=== PATIENT | female | born 1995 | race Caucasian/White ===

== ENCOUNTER → 2016-08-08 | Outpatient (CLI) | payer BC ==
[2016-08-08 20:42] LABS: Basophils % (A) 0 %; CH 22.4; CHCM 30.6; Eosinophils # (A) 0.1 k/uL (0-0.7); Eosinophils % (A) 1 %; HGB 11.9 gm/dL (11.4-16.0); Hypochromasia Marked; Luc # (Auto) 0.14; Luc % (Auto) 2; Lymphocytes # (A) 0.8 k/uL (1.0-4.8); Lymphocytes % (A) 11 %; MCHC 31.3 g/dL (31.0-37.0); MCV 73.3 fL (80.0-100.0); Mean Platelet Volume 6.4; Microcytosis Slight; Monocytes # (A) 0.7 k/uL (0-1.0); Monocytes % (A) 9 %; Neutrophils # (A) 5.7 k/uL (1.3-7.7); Neutrophils % (A) 76 %; RBC 5.18 m/uL (3.80-5.40); RDW 13.9 % (11.5-15.5); WBC 7.5 k/uL (3.8-10.6); WBC (Perox) 7.59
[2016-08-08 20:49] LABS: ALT 31 U/L (9-52); AST 22 U/L (14-36); Alkaline Phosphatase 147 U/L (38-126); Anion Gap 12 mmol/L; Blood Urea Nitrogen 11 mg/dL (7-17); Calcium 9.7 mg/dL (8.4-10.2); Carbon Dioxide 29 mmol/L (22-30); Chloride 100 mmol/L (98-107); Glucose 82 mg/dL (74-99); Non-African American GFR(MDRD) >60 (>60 ml/min/1.73 sqM); Potassium 4.1 mmol/L (3.5-5.1); Sodium 141 mmol/L (137-145); Total Bilirubin 0.7 mg/dL (0.2-1.3)
== END | disposition home or self-care (01) ==
LOC: MMGSC 14:33
PROVIDERS: ATTEND Family Medicine
DX: R59.0 Localized enlarged lymph nodes (principal)
CPT/HCPCS: 36415; 80053; 85025

== ENCOUNTER → 2016-08-25 | Outpatient (CLI) | payer BC ==
--- NOTE | 2016-08-25 16:35 | US ---
EXAMINATION TYPE: US thyroid st tissue head/neck DATE OF EXAM: 08/25/2016 4:22 PM COMPARISON: NONE CLINICAL HISTORY: R59.9 Supraclavicular lymphadenopathy. Palpable area felt for 2 weeks Findings: 2.7cm enlarged lymph node seen supraclavicular at area of palpable At level of palpable abnormality there is 2.7 x 2.2 x 1.3 cm oval well-circumscribed lesion felt to r eflect abnormal lymph node as there is loss of normal central fatty hilum. No worrisome fluid collect ion identified. IMPRESSION: Abnormal adenopathy right supraclavicular level. Differential includes infection versus n eoplasm. If lesion persists further investigation with contrast-enhanced neck CT or MRI would be advi sed.
== END | disposition home or self-care (01) ==
LOC: RADUSWWP 16:13
PROVIDERS: ATTEND Family Medicine
DX: R59.9 Enlarged lymph nodes, unspecified (principal)
CPT/HCPCS: 76536

== ENCOUNTER 2016-11-07 08:55 | Day surgery (SDC) | payer BC ==
[2016-11-07 09:10] VITALS: BP 114/73; PULSE 89; RESP 20; TEMP 97.6
--- NOTE | 2016-11-07 11:24 | US ---
EXAMINATION TYPE: US biopsy lymph node DATE OF EXAM: 11/07/2016 HISTORY: supraclavicular mass. FINDINGS: Maximal barrier technique was utilized. The skin overlying a suitable path to the patient' s mass was localized with ultrasound and the overlying skin prepped and draped. Ultrasound was utili zed with sterile technique. Lidocaine was used for local anesthesia. A skin zane was made with a sc alpel. An 18-gauge needle was advanced under direct ultrasound guidance and core specimen obtained o f the mass. Specimen submitted in formalin to Pathology. Following the procedure, hemostasis achiev ed and the patient is discharged in stable condition without complication. IMPRESSION:STATUS POST ULTRASOUND GUIDED CORE BIOPSY OF right supraclavicular MASS, PATHOLOGY IS PEND ING. THIS PROCEDURE IS PERFORMED BY THE UNDERSIGNED.
== END 2016-11-07 10:30 | disposition home or self-care (01) ==
LOC: RADPROMAIN 08:55
PROVIDERS: ATTEND Otolaryngology Plastic Surgery within the Head & Neck
DX: R59.1 Generalized enlarged lymph nodes (principal)
CPT/HCPCS: 38505; 76942; 88305; 88341; 88342

== ENCOUNTER 2016-12-05 06:36 | Day surgery (SDC) | payer BC ==
[2016-12-04 11:25] VITALS: BMI 19.5
[~2016-12-05 06:36] MED LIST: DEXAMETHASONE SOD PHOSPHATE 10 MG/ML 1 ML VIAL IV ONE; HEPARIN SODIUM,PORCINE 5,000 UNIT/ML 1 ML VIAL SQ ONE; HYDROmorphone 1 MG/ML 1 ML SYRINGE IVP PRN; LACTATED RINGERS 1,000 ML IV SCH; MIDAZOLAM 2 MG/2 ML VIAL IV PRN; ONDANSETRON 4 MG/2 ML VIAL IVP ONE; Pre Op ABX Message 1 EACH MISC MISCELLANE ONE; SCOPOLAMINE 1.5MG/72HR PATCH TRANSDERM ONE
[2016-12-05 06:55] VITALS: RESP 16
[2016-12-05] MEDS ORDERED: LIDOCAINE 1% 20 ML VIAL (10MG/ML) FOR IV START INTRADERMA ONE (07:01)
--- NOTE | 2016-12-05 07:35 | P.GSHP ---
History of Present Illness H&P Date: 12/05/16 Chief Complaint: Lymphoma Patient is a 21-year-old female who was diagnosed recently with lymphoma. She had a open right supraclavicular lymph node biopsy. He is to begin chemotherapy next week. She is having a Port-A-Cath and a bone marrow biopsy done today. Past Medical History Past Medical History: Cancer Additional Past Medical History / Comment(s): Hodgkins' lymphoma History of Any Multi-Drug Resistant Organisms: None Reported Past Surgical History: No Surgical Hx Reported Additional Past Surgical History / Comment(s): excisional biopsy right supraclavicular node 11-25-16 Past Anesthesia/Blood Transfusion Reactions: No Reported Reaction Smoking Status: Never smoker - Past Family History Father Family Medical History: Liver Disease Additional Family Medical History / Comment(s): Hep b and C Medications and Allergies Home Medications Medication Instructions Recorded Confirmed Type No Known Home Medications [No 10/31/16 12/04/16 History Known Home Medications] Allergies Allergy/AdvReac Type Severity Reaction Status Date / Time No Known Allergies Allergy Verified 12/04/16 10:41 Surgical - Exam Vital Signs Temp Pulse Resp BP Pulse Ox 97.3 F L 88 16 105/66 97 12/05/16 06:53 12/05/16 06:53 12/05/16 06:53 12/05/16 06:53 12/05/16 06:53 Physical exam: General: Well-developed, well-nourished HEENT: Normocephalic, sclerae nonicteric, right supraclavicular scar Abdomen: Nontender, nondistended Extremities: No edema Neuro: Alert and oriented Assessment and Plan (1) Lymphoma Narrative/Plan: With Port-A-Cath placement at this time. Risks of bleeding, infection, pneumothorax, DVT, catheter malfunction were discussed. She understands and wishes to proceed. Status: Acute
[2016-12-05] MEDS ORDERED: PROPOFOL 10 MG/ML 20 ML VIAL IV ONE (07:45)
[2016-12-05] MEDS ORDERED: MIDAZOLAM 2 MG/2 ML VIAL ONE (07:45)
[2016-12-05] MEDS ORDERED: LIDOCAINE 1% INJ 10MG/ML (20 ML MDV) ONE (07:45)
[2016-12-05] MEDS ORDERED: fentaNYL (PF) 50 MCG/ML 2 ML AMP ONE (07:45)
[2016-12-05] MEDS ORDERED: SODIUM CHLORIDE 0.9% 50 ML with ceFAZolin 2,000 MG IV ONE ×2 (08:24)
[2016-12-05] MEDS ORDERED: HEPARIN SODIUM,PORCINE 100 UNIT/ML 5 ML VIAL IV ONE ×2 (08:27)
[2016-12-05] MEDS ORDERED: LIDOCAINE 1% INJ 10MG/ML (20 ML MDV) SQ ONE ×2 (08:28)
[2016-12-05] MEDS ORDERED: LACTATED RINGERS 1,000 ML IV ONE (08:46)
[2016-12-05 08:54] LABS: Basophils % (A) 0 %; CH 21.6; CHCM 30.5; Eosinophils # (A) 0.1 k/uL (0-0.7); Eosinophils % (A) 1 %; HCT 32.6 % (34.0-46.0); HDW 3.04; HGB 10.3 gm/dL (11.4-16.0); Hypochromasia Marked; Luc % (Auto) 2; Lymphocytes # (A) 0.7 k/uL (1.0-4.8); Lymphocytes % (A) 10 %; MCH 22.4 pg (25.0-35.0); MCHC 31.5 g/dL (31.0-37.0); MCV 70.9 fL (80.0-100.0); Mean Platelet Volume 6.4; Microcytosis Moderate; Monocytes # (A) 0.6 k/uL (0-1.0); Monocytes % (A) 9 %; Neutrophils # (A) 5.2 k/uL (1.3-7.7); Neutrophils % (A) 78 %; RDW 15.2 % (11.5-15.5); WBC 6.7 k/uL (3.8-10.6); WBC (Perox) 6.87
[2016-12-05 09:03] VITALS: TEMP 98.2
[2016-12-05] MEDS ORDERED: HYDROcodone/APAP 5-325MG 1 EACH TAB PO PRN (09:07)
[2016-12-05] MEDS ORDERED: NALOXONE 0.4 MG/ML 1 ML VIAL IV PRN (09:07)
--- NOTE | 2016-12-05 09:09 | P.PCN ---
Date of Procedure: 12/05/16 Preoperative Diagnosis: Postoperative Diagnosis: Procedure(s) Performed: PREOPERATIVE DIAGNOSIS: Lymphoma POSTOPERATIVE DIAGNOSIS: Same PROCEDURE: Port-A-Cath placement SURGEON: Сергей EBL: Minimal ANESTHESIA: Sedation COMPLICATIONS: None OPERATIVE PROCEDURE: Patient was brought and placed on the operative table in the supine position. The patient was sedated per anesthesia that time. The chest and neck were prepped and draped in usual sterile fashion. The ultrasound probe was used to identify the location of the right internal jugular vein. The skin was localized with lidocaine. The Seldinger needle was advanced into the IJ under ultrasound guidance. The wire was advanced through the needle under fluoroscopic guidance into the superior vena cava. A port pocket was created in the right infraclavicular location. The catheter was tunneled from the wire entrance site to the port pocket. The port was then connected to the catheter. The dilator introducer was threaded over the guidewire. The guidewire and dilator were then removed. The catheter was advanced through the introducer and introducer was then removed. The tip was seen to be in the right atrial junction. Port was flushed with both saline and a Hep-Lock solution. There was good flow both in and out of the port. The port was sutured in underlying tissues using 3-0 silk sutures. The subcutaneous tissues were reapproximated using 3-0 Vicryl sutures and the skin at both locations using 4-0 Monocryl sutures. Steri-Strips and sterile dressings then applied. DISPOSITION: Stable to recovery room Implants: Indications for Procedure: Operative Findings: Description of Procedure:
[2016-12-05] MEDS ORDERED: KETOROLAC 30 MG/ML 1 ML VIAL IVP ONE (09:25)
--- NOTE | 2016-12-05 09:36 | XR ---
EXAMINATION TYPE: XR chest 1V portable DATE OF EXAM: 12/05/2016 COMPARISON: NONE HISTORY: Post Port-A-Cath insertion TECHNIQUE: Single AP portable frontal upright view of the chest is obtained. FINDINGS: There is right internal jugular Mediport catheter with tip in right atrium. There is dense left hilar consolidation with air bronchogram silhouetting left heart border. Right lung is clear. T here is some mediastinal shift to the left. The cardiac silhouette size is difficult to measure with silhouetting of left heart border. No large pleural effusion or pneumothorax seen bilaterally. Right paratracheal fullness is seen could reflect underlying adenopathy. The osseous structures are intact. IMPRESSION: 1. New right internal jugular Mediport catheter with tip in right atrium. No evidence of sizable pneu mothorax. 2. Abnormal prominent left hilar masslike consolidation, correlate for infection. There is an atelect atic component suspected as there is left-sided volume loss. Bronchial obstruction related to mucous plugging needs to BE considered. Right suprahilar paratracheal soft tissue fullness could reflect ama nopathy. Correlation with recent outside x-ray, CT, or PET/CT imaging would be beneficial.
[2016-12-05 10:24] VITALS: BP 99/49; PULSE 61
--- NOTE | 2016-12-05 12:03 | FL ---
Fluoroscopy HISTORY: Port-A-Cath insertion 3 seconds fluoroscopy time supplied to the referring clinician. 1 intraoperative C-arm images docume nt the procedure. See dictated report from general surgery.
--- NOTE | 2016-12-06 14:11 | PCN ---
DATE OF SERVICE: 12/05/2016 PROCEDURE: Bone marrow aspirate and biopsy. INDICATIONS: Staging for Hodgkins lymphoma. After obtaining consent from the patient, the procedure was performed in the operating room. In fact, because she was having Mediport placement shortly after the bone marrow biopsy. It was done under general anesthesia performed by the Anesthesia Team. The patient was put in the left lateral decubitus position. The right posterior superior iliac crest was localized. The skin was cleaned with ChloraPrep. All sterile procedure was followed. 2 mL Xylocaine was used for local anesthetic. Jamshidi needle was inserted about 10 mL aspirate was obtained and a small core biopsy was obtained. Pressure was applied afterward. There was an occasional blood loss. Patient tolerated procedure very well without any immediate complications. GADIEL
[2016-12-09 13:31] LABS: Mis test requested (Blood) ESR
== END 2016-12-05 11:14 | disposition home or self-care (01) ==
LOC: OR 06:36
PROVIDERS: ATTEND Surgery
DX: C81.90 Hodgkin lymphoma, unspecified, unspecified site (principal); D50.9 Iron deficiency anemia, unspecified; D47.3 Essential (hemorrhagic) thrombocythemia; R91.8 Other nonspecific abnormal finding of lung field
CPT/HCPCS: 81025; 85652; 85025; 71010; 77001; 38221; 36561; C1788; J2250; J1644; J1642; J1100; J2405; J0690; J2001; J3010; J1885; J2704; G0364

== ENCOUNTER → 2016-12-06 | Outpatient (CLI) | payer BC ==
--- NOTE | 2016-12-08 19:35 | PE ---
EXAMINATION TYPE: PET CT fusion skull to thigh DATE OF EXAM: 12/06/2016 CLINICAL HISTORY: 21-year-old female lymphoma prechemotherapy, initial staging. Excisional biopsy of a right-sided lymph node on 11/25/2016. TECHNIQUE: Following the intravenous administration of 10.25 mCi of F-18 FDG, whole body images are performed from the skull base to the midthigh. Images are reviewed on the computer in the coronal, axial, and sagittal planes. Reconstructed rotating images are created on independent workstation and reviewed on the computer. A localization and attenuation correction CT is performed in conjunction with the PET scan. Glucose level: 82 mg/dL CTDI: 2.43 mGY DLP: 216.22 mGy-cm COMPARISON: None. FINDINGS: PET: Focal [id number] areas of uptake in regions of fat present on either side of the upper neck, an d linear distributions down the sides of the neck and supraclavicular regions are suspicious for brow n fat. Additional areas of muscular uptake are present within the neck. There is some focal fat stranding in the subcutaneous fat of the lower right side of the neck with as sociated moderate FDG uptake that may reflect the site of patient's lymph node excisional biopsy or p ostprocedure inflammation from right chest port placement. Some subcutaneous foci of air are present likely relating to chest port placement near the sternal notch. Additional probable brown fat within the right axilla characterized by focal increased uptake but no discrete lymph node. However, there is extensive mediastinal lymphadenopathy which has variable moderate to intense FDG up take. 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 Maximum SUV 6.6. Left-sided subpectoral lymph node measures 1.5 cm, max SUV 5.0. There is some nodularity within the superior lingula measuring up to 1 cm, axial image 80 and 81 that shows minimal to mild uptake, max SUV 1.5, that could represent additional lymphomatous involvement. Gastrohepatic ligament lymph node has borderline moderate FDG uptake, max SUV 3.2, measuring 9 mm. Variable moderate bowel uptake within the right hemicolon likely physiologic muscular uptake. Possible lymph node along the left iliac bifurcation measuring 7 mm, axial image 201 with moderate fo zachary uptake, max SUV 4.2. There are 2 mixed density masses within the pelvis, one in the cul-de-sac/left adnexa measures up to 9.3 x 6.8 cm shows nodular soft tissue, some curvilinear calcification, and prominent intralesional f at. A second similar but smaller lesion measures 4.0 x 4.9 cm within the right adnexa. These are larg panfilo ametabolic and some foci of uptake in this region are likely within adjacent bowel. ATTENUATION CORRECTION CT: Paranasal sinuses and mastoid air cells are well pneumatized. Right anterior chest wall injection port with catheter tip at the cavoatrial junction. The heart is normal size without pericardial effusion. Aorta is normal caliber. No consolidation or pleural effusion. Moderate stool burden. No dilated small bowel, free fluid, or free air. Uterus is visualized. No abnormal fluid collection seen in the pelvis. Bones: No osseous destructive process. IMPRESSION: 1. Hypermetabolic lymphomatous involvement diffusely throughout the mediastinum with the largest aylin l mass in the prevascular space extending down the left side of the heart measuring up to 6.8 cm. Add itional hypermetabolic left subpectoral lymph node. These show variable mild to intense FDG uptake, m ax SUV 7.3. 2. A 9 mm gastrohepatic ligament lymph node shows suspicious borderline moderate FDG uptake. This is suggestive of limited disease below the diaphragm. A moderate focus of uptake at the left iliac bifur cation is more equivocal and could represent a loop of bowel versus a small lymph node. 3. A couple 1 cm pulmonary nodules in the superior lingula show minimal uptake and may represent add itional lymphomatous involvement. 4. Variable moderate hypermetabolism within the neck and right axilla localizing to regions of fat andersen spected to represent FDG uptake within brown fat. Focal uptake in the lower right neck could be posti nflammatory due to chest port placement or represent site of patient's excisional biopsy. 5. Large dermoid measuring 9.3 cm likely arising from the left ovary. A second smaller 4.9 cm dermoid in the right adnexa likely arising from the right ovary. Note that these large lesions place the pat ient at risk for ovarian torsion.
== END | disposition home or self-care (01) ==
LOC: CPPFTMAIN 15:03
PROVIDERS: ATTEND Internal Medicine Hematology & Oncology
DX: Z01.818 Encounter for other preprocedural examination (principal); C81.10 Nodular sclerosis Hodgkin lymphoma, unspecified site; D28.9 Benign neoplasm of female genital organ, unspecified; R91.8 Other nonspecific abnormal finding of lung field; M89.8X8 Other specified disorders of bone, other site
CPT/HCPCS: 78815; A9552

== ENCOUNTER → 2016-12-08 | Outpatient (CLI) | payer BC ==
--- NOTE | 2016-12-09 09:23 | ECHOF ---
Referral Reason:C81.10 Lymphoma,Z01.818 Pre chemo MEASUREMENTS -------- HEIGHT: 160.0 cm WEIGHT: 49.9 kg BP: 97/53 IVSd: 0.7 cm (0.6 - 1.1) LVIDd: 4.0 cm (3.9 - 5.3) LVPWd: 0.9 cm (0.6 - 1.1) IVSs: 1.1 cm LVIDs: 2.5 cm LVPWs: 1.3 cm Ao Diam: 2.9 cm (2.0 - 3.7) AV Cusp: 2.2 cm (1.5 - 2.6) LA Diam: 2.2 cm (2.7 - 3.8) MV EXCURSION: 23.406 mm (> 18.000) MV EF SLOPE: 237 mm/s (70 - 150) EPSS: 0.6 cm MV E Cornelius: 0.91 m/s MV DecT: 119 ms MV A Cornelius: 0.94 m/s MV E/A Ratio: 0.97 RAP: 5.00 mmHg RVSP: 18.23 mmHg FINDINGS -------- Resting tachycardia (HR>100bpm). This was a technically good study. Left ventricular wall thickness is normal. Overall left ventricular systolic function is normal with, an EF between 55 - 60 %. The right ventricle is normal in size and function. The left atrium is normal in size. The right atrium is normal in size. The aortic valve is trileaflet, and appears structurally normal. No aortic stenosis or regurgitation. There is trace mitral regurgitation. Trace tricuspid regurgitation present. The right ventricular systolic pressure, as measured by Doppler, is 18.23mmHg. Pulmonic valve appears structurally normal. The aortic root size is normal. Normal inferior vena cava with normal inspiratory collapse consistent with estimated right atrial pressure of 5 mmHg. The pericardium is normal. CONCLUSIONS -------- 1. Resting tachycardia (HR>100bpm). 2. Trace tricuspid regurgitation present. 3. The right ventricular systolic pressure, as measured by Doppler, is 18.23mmHg. 4. Pulmonic valve appears structurally normal. 5. The aortic root size is normal. 6. Normal inferior vena cava with normal inspiratory collapse consistent with estimated right atrial pressure of 5 mmHg. 7. The pericardium is normal. 8. This was a technically good study. 9. Left ventricular wall thickness is normal. 10. Overall left ventricular systolic function is normal with, an EF between 55 - 60 %. 11. The right ventricle is normal in size and function. 12. The left atrium is normal in size. 13. The right atrium is normal in size. 14. The aortic valve is trileaflet, and appears structurally normal. No aortic stenosis or regurgitation. 15. There is trace mitral regurgitation. HOT CELL TECHNICIAN: Ela Longoria RDCS
== END | disposition home or self-care (01) ==
LOC: RADECHMAIN 13:18
PROVIDERS: ATTEND Internal Medicine Hematology & Oncology
DX: Z01.810 Encounter for preprocedural cardiovascular examination (principal); C81.10 Nodular sclerosis Hodgkin lymphoma, unspecified site; R00.0 Tachycardia, unspecified
CPT/HCPCS: 93306

== ENCOUNTER → 2016-12-10 | Outpatient (CLI) | payer BC | END | disposition home or self-care (01) | LOC: CPPFTMAIN 14:29 | PROVIDERS: ATTEND Internal Medicine Hematology & Oncology | DX: Z01.818 Encounter for other preprocedural examination (principal); C81.10 Nodular sclerosis Hodgkin lymphoma, unspecified site | CPT/HCPCS: 94060; 94726; 94729 ==

== ENCOUNTER → 2016-12-24 | Outpatient (CLI) | payer BC ==
--- NOTE | 2016-12-24 08:17 | CT ---
EXAMINATION TYPE: CT ChestAbdPelvis w con DATE OF EXAM: 12/24/2016 COMPARISON: PET/CT December 06, 2016. HISTORY: Hodgkin's lymphoma recently diagnosed after biopsy and excision right neck. CT DLP: 476.60 mGycm. Automated Exposure Control for Dose Reduction was Utilized. CONTRAST: CT scan of the thorax, abdomen and pelvis is performed with oral and with IV Contrast, patient inject ed with 100 ml mL of Omnipaque 300. FINDINGS: LUNGS: Some scattered pulmonary nodules are redemonstrated. For reference 8 x 7 mm nodule medially in the left upper lung on axial image 20 is unchanged from recent PET/CT. There is additional 7 x 5 mm nodule just inferior and lateral to this on axial image 21 redemonstrated felt stable. Smaller adjac ent nodules are present. There is no pleural effusion or pneumothorax seen. The tracheobronchial mahogany e is patent. MEDIASTINUM: There are persistent abnormal thoracic lymph nodes. There is abnormal lymph node in the anterior superior mediastinum along right posterior lateral aspect of trachea measuring 1.6 x 1.0 cm on axial image 18. There are large confluent abnormal right paratracheal, subcarinal, prevascular, l eft pericardial, and left hilar lymph nodes. For reference subcarinal lymph node measures 3.5 x 2.3 c m on axial image 27. No significant change from recent PET/CT. No cardiomegaly or pericardial effusio n is seen. OTHER: No discrete axillary adenopathy. There is redemonstration of right internal jugular Mediport c atheter with tip in SVC. LIVER/GB: No significant abnormality is appreciated. PANCREAS: No significant abnormality is seen. SPLEEN: No significant abnormality is seen. ADRENALS: No significant abnormality is seen. KIDNEYS: Slightly abnormally distended bladder is noted. BOWEL: No significant abnormality is seen. GENITAL ORGANS: There is redemonstration of bilateral adnexal or ovarian masses. The larger lesion in left ovary measures approximately 8.2 x 5.1 cm on axial image 99. Smaller lesion right ovary measure s 4.3 x 2.7 cm on axial image 101. Lesions felt stable. There is fat as well as soft tissue in both l esions with calcific foci. LYMPH NODES: There is redemonstration of prominent gastrohepatic ligament lymph node seen best on cor onal image 29 measuring 14 x 7 mm it corresponds to a slightly hypermetabolic lymph node seen on PET/ CT. No additional or new suspicious abdominal or pelvic lymph nodes are appreciated. OSSEOUS STRUCTURES: No significant abnormality is seen. OTHER: No significant additional abnormality is seen. IMPRESSION: 1. Persistent abnormal thoracic adenopathy as detailed above consistent with known lymphoma involveme nt not significantly changed from PET/CT. Nodular involvement left lung is stable also likely product of lymphoma involvement. Single prominent upper abdominal lymph node is stable. 2. Redemonstration of bilateral ovarian masses or neoplasm consistent with dermoids unchanged from re cent PET/CT. Gynecology oncology referral advised if has not been performed.
== END | disposition home or self-care (01) ==
LOC: RADCTMAIN 07:10
PROVIDERS: ATTEND Internal Medicine Hematology & Oncology
DX: C81.10 Nodular sclerosis Hodgkin lymphoma, unspecified site (principal)
CPT/HCPCS: 71260; 74177; Q9967

== ENCOUNTER → 2017-02-21 | Outpatient (CLI) | payer BC ==
--- NOTE | 2017-02-21 14:42 | PE ---
EXAMINATION TYPE: PET CT fusion skull to thigh DATE OF EXAM: 02/21/2017 COMPARISON: CT chest abdomen and pelvis December 24, 2016. Most recent PET CT December 06, 2016 HISTORY: Lymphoma progress study. Completed chemotherapy February 11. Had surgery October right neck. TECHNIQUE: Following the intravenous administration of 13.76 mCi of F-18 FDG, whole body images are performed from the skull base to the midthigh. Images are reviewed on the computer in the coronal, a xial, and sagittal planes. Reconstructed rotating images are created on independent workstation and reviewed on the computer. A localization and attenuation correction CT is performed in conjunction with the PET scan. SCAN: Subsequent Scan FINDINGS: SKULL BASE AND NECK: No suspicious hypermetabolic uptake is seen on current study. CHEST, MEDIASTINUM, AND HILAR REGION: There is redemonstration of extensive mediastinal adenopathy. L argest curvilinear lesion near main pulmonary artery is diminished in size measuring 5.3 x 2.4 cm on axial image 89 versus 6.7 x 3.7 cm on prior study image 98. No abnormal hypermetabolic uptake is seen at this level on current study. Other lymph nodes in the mediastinum do not show abnormal hypermetab olic uptake and are felt smaller in size. There are however new scattered pulmonary nodules with several seen superior aspect left lower lobe, largest measures 1.8 x 1.7 cm on axial image 80 with max SUV of 5.68s. There are new small nodules sc attered throughout the right upper lobe and superior aspect right lower lobe, largest measures 1.7 x 1.2 cm on axial image 87 with max SUV of 4.98. ABDOMEN AND PELVIS: No suspicious hypermetabolic uptake is seen in the abdomen or pelvis. OSSEOUS STRUCTURES: No suspicious hypermetabolic uptake is seen in osseous structures. OTHER CT: There is new near complete opacification bilateral maxillary sinuses, correlate for acute s inusitis advised. There is redemonstration of right internal jugular Mediport catheter with tip in SVC. Spleen appears prominent but that does not measure enlarged on today's study. There is 9.0 x 5.5 cm oval well-defined lesion left pelvis redemonstrated has fat density superiorly and soft tissue density posteriorly with some calcification along the left superior aspect. There is redemonstration of smaller lesion with soft tissue fat and calcific density right pelvis near axial i mage 201 measuring 4.9 x 3.3 cm. Accounting for technical differences there both felt stable in size and appearance. IMPRESSION: 1. Overall mixed response with decrease in size and now no suspicious hypermetabolic uptake in diffus e mediastinal adenopathy or lymphoma however there are new hypermetabolic parenchymal nodules identif ied bilaterally in which new areas of lymphoma involvement cannot be excluded. 2. Redemonstration of bilateral ovarian dermoids, left larger than right. 3. New bilateral maxillary sinus disease noted. Correlate clinically.
== END ==
LOC: RADPETMAIN 08:48
PROVIDERS: ATTEND Internal Medicine Hematology & Oncology
DX: C81.10 Nodular sclerosis Hodgkin lymphoma, unspecified site (principal)
CPT/HCPCS: 78815; A9552

== ENCOUNTER → 2017-04-13 | Outpatient (CLI) | payer BC ==
[2017-04-13 09:26] LABS: Blood Urea Nitrogen 9 mg/dL (7-17); Non-African American GFR(MDRD) >60 (>60 ml/min/1.73 sqM)
--- NOTE | 2017-04-13 12:11 | CT ---
EXAMINATION TYPE: CT ChestAbdPelvis w con DATE OF EXAM: 04/13/2017 COMPARISON: CT chest abdomen pelvis December 24, 2016. Initial PET/CT December 06, 2016. HISTORY: Lymphoma progress study. CT DLP: Automated Exposure Control for Dose Reduction was Utilized. CONTRAST: CT scan of the thorax, abdomen and pelvis is performed without oral and with IV Contrast, patient inj ected with 100 mL of Omnipaque 300. FINDINGS: LUNGS: The lungs are grossly clear, there is no concerning parenchymal mass or nodule identified on c urrent study. Prominent subcentimeter nodules and/or lymph nodes near left hilar and suprahilar reg ion on prior study are not clearly identified on current study. There is no pleural effusion or pneum othorax seen. The tracheobronchial tree is patent. MEDIASTINUM: There is marked improvement in thoracic adenopathy. Some persistent anterior superior me diastinal lymph nodes as well as paratracheal lymph nodes remain present. For reference right paratra cheal lymph node is now low dense measuring 1.5 x 1.1 cm on axial image 22 versus more regular hypode nse measuring 2.8 x 1.8 cm prior study image 16. Left superior pericardial curvilinear soft tissue or confluent adenopathy is again seen. For reference this measures 4.6 x 1.9 cm current study axial smita ge 33 versus 6.2 x 4.1 cm prior study axial image 31. No new adenopathy is present. No cardiomegaly or pericardial effusion is seen. OTHER: There is stable right internal jugular Mediport catheter terminating at cavoatrial junction. LIVER/GB: No significant abnormality is appreciated. PANCREAS: No significant abnormality is seen. SPLEEN: No significant abnormality is seen. ADRENALS: No significant abnormality is seen. KIDNEYS: No significant abnormality is seen. BOWEL: No significant abnormality is seen. GENITAL ORGANS: There is redemonstration of large bilateral adnexal or ovarian masses. Larger lesion on left side is redemonstrated with soft tissue and fat density measuring 9.4 x 5.9 cm on axial image 107 stable or perhaps slightly larger versus prior. Right-sided lesion with soft tissue and fat dens ity measures 5.5 x 4.1 cm on axial image 109 stable or slightly larger versus prior accounting for te chnical differences. Foci of calcification redemonstrated. LYMPH NODES: No greater than 1cm abdominal or pelvic lymph nodes are appreciated. OSSEOUS STRUCTURES: No significant abnormality is seen. OTHER: No significant additional abnormality is seen. IMPRESSION: 1. Marked improvement in thoracic adenopathy consistent with positive response to treatment. 2. Persistent bilateral ovarian masses or neoplasm consistent with dermoids may be increasing in size versus prior.
== END | disposition home or self-care (01) ==
LOC: RADCTMAIN 08:48
PROVIDERS: ATTEND Internal Medicine Hematology & Oncology
DX: C81.10 Nodular sclerosis Hodgkin lymphoma, unspecified site (principal)
CPT/HCPCS: 82565; 84520; 71260; 74177; 36415; Q9967; 36591; 85025; 96367; 96375; 96409; 96411; 96415

== ENCOUNTER → 2017-08-03 | Outpatient (CLI) | payer BC ==
--- NOTE | 2017-08-03 11:39 | CT ---
EXAMINATION TYPE: CT ChestAbdPelvis w con DATE OF EXAM: 08/03/2017 COMPARISON: Prior CT chest abdomen pelvis 04/13/2017 HISTORY: Lymphoma CT DLP: 486.6 mGycm Automated exposure control for dose reduction was used. CONTRAST: CT scan of the chest, abdomen and pelvis is performed with Oral Contrast and with IV Contrast, patien t injected with 100 mL of Isovue 300. FINDINGS: LUNGS: The lungs are grossly clear, there is no concerning parenchymal mass or nodule identified. T here is no pleural effusion or pneumothorax seen. The tracheobronchial tree is patent. MEDIASTINUM: Mediastinal soft tissue seen on previous exam shows a similar appearance. No pericardial effusion is seen. AORTA: No significant abnormality is seen. OTHER: No additional significant abnormality is seen. LIVER/GB: Similar to prior exam. PANCREAS: No significant abnormality is seen. SPLEEN: No significant abnormality is seen. ADRENALS: No significant abnormality is seen. KIDNEYS: No significant abnormality is seen. REPRODUCTIVE ORGANS: Similar to prior exam, large left adnexal fat-containing mass with mixed soft ti ssue density again seen approximately 10 cm in greatest dimension, right adnexal lesion also contains fat and high density material and measures approximately 6 cm in greatest dimension possibly mildly increased in size compatible with bilateral teratoma. Probable involuting ovarian cyst also associate d with the right ovary. BOWEL: No significant abnormality is seen. FREE AIR: No Free Air visible. ASCITES: None seen. RETROPERITONEAL ADENOPATHY: No retroperitoneal adenopathy is seen. LYMPH NODES: No greater than 1 cm abdominal or pelvic lymph nodes are appreciated. URINARY BLADDER: No significant abnormality is seen. PELVIC ADENOPATHY: None visualized. OSSEOUS STRUCTURES: No significant abnormality is seen. IMPRESSION: No significant interval change, essentially stable exam. There may be some slight interva l increase in size of patient's bilateral ovarian teratoma.
== END | disposition home or self-care (01) ==
LOC: RADCTMAIN 07:16
PROVIDERS: ATTEND Internal Medicine Hematology & Oncology
DX: C81.10 Nodular sclerosis Hodgkin lymphoma, unspecified site (principal)
CPT/HCPCS: 71260; 74177; Q9967

== ENCOUNTER → 2017-12-14 | Outpatient (CLI) | payer BC ==
--- NOTE | 2017-12-14 19:24 | CT ---
EXAMINATION TYPE: CT ChestAbdPelvis w con DATE OF EXAM: 12/14/2017 INDICATION: Follow up for lymphoma. COMPARISON: 08/03/2017 CT DLP: 1096 mGycm CONTRAST: Performed with Oral Contrast and with IV Contrast, patient injected with 100 mL of Isovue 300. TECHNIQUE: Axial images at 5 mm thick sections. Reconstructed images in the coronal plane. Delayed images through the kidneys. FINDINGS: CT CHEST: Small lymph nodes are through the left axillary region. Some shotty lymphadenopathy is in t he pretracheal space Portion of the thyroid visualized is normal. No suspicious lung nodules or focal infiltrates are present. No enlarged mediastinal or hilar adenopathy is evident. The ascending aorta diameter at the level of the main pulmonary artery is 2.5 cm. The main pulmonary artery diameter at the bifurcation is 2.[address] ABDOMEN: No suspicious abdominal adenopathy is evident. Liver: Normal Spleen: Normal Pancreas: Normal Adrenal glands: The adrenal glands are normal. Gallbladder: Normal Kidneys: No masses are evident. No hydronephrosis is present. No cysts are present. Delayed images were obtained through the kidneys, which remain unremarkable. Aorta: Vascular calcification is within the aorta. Inferior vena cava: Normal. CT PELVIS: Loops of bowel within the abdomen and pelvis are normal. There are loops of bowel which are incom pletely distended or lack oral contrast limiting their evaluation. Appendix: Normal as visualized. Urinary bladder: Normal. Genitourinary structures: Uterus appears normal. There is heterogenous hypo and hyperdense areas with in the right adnexal region. Some calcification is present. Teratoma is likely present. This currentl y measures 4.4 x 4.9 cm similar to prior study. Mixed density is present in the left adnexal region. A teratoma may be present at this level measuring 9.8 x 5.7 cm. Osseous structures: No suspicious lytic or sclerotic lesions. IMPRESSIONS: 1. Suspected ovarian dermoids. 2. No suspicious recurrent adenopathy.
== END | disposition home or self-care (01) ==
LOC: RADCTMAIN 11:23
PROVIDERS: ATTEND Internal Medicine Hematology & Oncology
DX: C81.10 Nodular sclerosis Hodgkin lymphoma, unspecified site (principal)
CPT/HCPCS: 71260; 74177; Q9967

== ENCOUNTER 2020-03-30 01:27 | Emergency (ER) | payer BC ==
[2020-03-30 01:35] VITALS: TEMP 97.9
[2020-03-30] MEDS ORDERED: SODIUM CHLORIDE 0.9% 1,000 ML IV STA (01:47)
[2020-03-30] MEDS ORDERED: MORPHINE SULFATE 2 MG/ML SYRINGE IVP STA (01:47)
[2020-03-30] MEDS ORDERED: ONDANSETRON 4 MG/2 ML VIAL IVP STA ×2 (01:47→04:48)
[2020-03-30] MEDS ORDERED: MORPHINE SULFATE 4 MG/ML SYRINGE IVP STA ×3 (01:53→04:21)
--- NOTE | 2020-03-30 02:03 | ED ---
Abdominal Pain HPI - General Source: patient, RN notes reviewed, old records reviewed Mode of arrival: ambulatory Limitations: no limitations <Karen Gonzalez - Last Filed: 03/30/20 02:59> <Michele Lara - Last Filed: 03/30/20 05:00> - General Chief Complaint: Abdominal Pain Stated Complaint: Abd Pain Time Seen by Provider: 03/30/20 01:39 - History of Present Illness Initial Comments: Patient is a 24-year-old female who is in approximately 13 days , who presents emergency department today with chief complaint of sudden onset of left lower quadrant abdominal pain. She reports that she has a known history of ovarian cyst or mass on the left ovary there reportedly measured 11 cm. She reports that she was to have this removed 6 weeks . Patient states that the pain became very severe tonight. She denies any significant abnormal vaginal discharge or fevers. She reports she's had a normal post experience until tonight. Her delivery was at [facility], with Dr. Helene Bedoya. Pt is breast-feeding. Patient reports that she also has a history of Hodgkin's lymphoma which is in remission. Patient denies changes in stool. She does report she has nausea associated with pain. (Karen Gonzalez) - Related Data Home Medications Medication Instructions Recorded Confirmed Ondansetron [Zofran] 4 mg PO Q12HR PRN 03/17/17 03/30/17 Allergies Allergy/AdvReac Type Severity Reaction Status Date / Time No Known Allergies Allergy Verified 03/30/20 01:35 Review of Systems ROS Other: All systems not noted in ROS Statement are negative. <Karen Gonzalez - Last Filed: 03/30/20 02:59> ROS Other: All systems not noted in ROS Statement are negative. <Michele Lara - Last Filed: 03/30/20 05:00> ROS Statement: Those systems with pertinent positive or pertinent negative responses have been documented in the HPI. Past Medical History Past Medical History: Cancer Additional Past Medical History / Comment(s): Hodgkins' lymphoma History of Any Multi-Drug Resistant Organisms: None Reported Past Surgical History: No Surgical Hx Reported Additional Past Surgical History / Comment(s): excisional biopsy right supraclavicular node 8-1-17, chemo port removed Past Anesthesia/Blood Transfusion Reactions: No Reported Reaction Past Psychological History: No Psychological Hx Reported Smoking Status: Never smoker Past Alcohol Use History: Occasional Past Drug Use History: None Reported - Past Family History Father Family Medical History: Liver Disease Additional Family Medical History / Comment(s): Hep b and C <Karen Gonzalez - Last Filed: 03/30/20 02:59> General Exam Limitations: no limitations General appearance: alert, in no apparent distress Head exam: Present: atraumatic, normocephalic, normal inspection Eye exam: Present: normal appearance, PERRL, EOMI. Absent: scleral icterus, conjunctival injection, periorbital swelling ENT exam: Present: normal exam, mucous membranes moist Neck exam: Present: normal inspection. Absent: tenderness, meningismus, lymphadenopathy Respiratory exam: Present: normal lung sounds bilaterally. Absent: respiratory distress, wheezes, rales, rhonchi, stridor Cardiovascular Exam: Present: regular rate, normal rhythm, normal heart sounds. Absent: systolic murmur, diastolic murmur, rubs, gallop, clicks GI/Abdominal exam: Present: soft, tenderness (Left lower quadrant tenderness, guarding.), normal bowel sounds. Absent: distended, guarding, rebound, rigid Extremities exam: Present: normal inspection, full ROM, normal capillary refill. Absent: tenderness, pedal edema, joint swelling, calf tenderness Back exam: Present: normal inspection Neurological exam: Present: alert, oriented X3, CN II-XII intact Psychiatric exam: Present: normal affect, normal mood Skin exam: Present: warm, dry, intact, normal color. Absent: rash <Karen Gonzalez - Last Filed: 03/30/20 02:59> - General Exam Comments Initial Comments: 24-year-old female. Patient appears in moderate discomfort. (Karen Gonzalez) Course <Michele Lara - Last Filed: 03/30/20 05:00> Vital Signs 03/30/20 03/30/20 01:29 04:56 Temperature 97.9 F 97.9 F Pulse Rate 64 63 Respiratory 20 16 Rate Blood Pressure 114/84 O2 Sat by Pulse 99 99 Oximetry - Reevaluation(s) Reevaluation #1: 03/30/20 04:59 Medical record is reviewed (Michele Lara) Reevaluation #2: 03/30/20 04:59 patient having persistent difficult to control pain (Michele Lara) Medical Decision Making - Lab Data Result diagrams: 03/30/20 01:57 03/30/20 01:57 - Radiology Data Radiology results: report reviewed <Karen Gonzalez - Last Filed: 03/30/20 02:59> - Lab Data Result diagrams: 03/30/20 01:57 03/30/20 01:57 - Radiology Data Radiology results: report reviewed (CT abdomen and pelvis and ultrasound pelvis negative for torsion negative for acute disease), image reviewed <Michele Lara - Last Filed: 03/30/20 05:00> - Medical Decision Making 24-year-old female presents present emergency department with The left lower quadrant abdominal pain onset at midnight. Patient is 2 weeks and she is a female. Patient has no abdominal reported vaginal discharge or fevers. She isn't known left-sided ovarian cysts. She had significant pain upon arrival and I did discuss concern for torsion with her known history of ovarian cyst. Patient had IV established was given 4 mg of morphine. Labs are reviewed and unremarkable. Computed tomography scan shows evidence of 11 cm dermoid left ovarian cyst and a 6.5 cm right-sided ovarian cyst. At this time she had ultrasound to rule out torsion and this is pending. Patient's case signed Dr. Lara At 3:01 AM. (Karen Gonzalez) 24 female DF for abdominal pain, known history of dermoid cyst, patient is CT ultrasound negative for torsion no real changes on computed tomography scan size. Patient given pain medication here but is breast-feeding without pain medication for discharge home (Michele Lara) - Lab Data Lab Results 03/30/20 03/30/20 03/30/20 Range/Units 01:57 01:57 01:57 WBC 6.3 (3.8-10.6) k/uL RBC 5.47 H (3.80-5.40) m/uL Hgb 13.4 (11.4-16.0) gm/dL Hct 42.2 (34.0-46.0) % MCV 77.2 L (80.0-100.0) fL MCH 24.6 L (25.0-35.0) pg MCHC 31.8 (31.0-37.0) g/dL RDW 14.5 (11.5-15.5) % Plt Count 378 (150-450) k/uL MPV 6.6 Neutrophils % 56 % Lymphocytes % 33 % Monocytes % 5 % Eosinophils % 3 % Basophils % 1 % Neutrophils # 3.5 (1.3-7.7) k/uL Lymphocytes # 2.1 (1.0-4.8) k/uL Monocytes # 0.3 (0-1.0) k/uL Eosinophils # 0.2 (0-0.7) k/uL Basophils # 0.1 (0-0.2) k/uL PT 10.6 (9.0-12.0) sec INR 1.0 (<1.2) APTT 28.6 (22.0-30.0) sec Sodium 139 (137-145) mmol/L Potassium 3.3 L (3.5-5.1) mmol/L Chloride 105 (98-107) mmol/L Carbon Dioxide 25 (22-30) mmol/L Anion Gap 9 mmol/L BUN 16 (7-17) mg/dL Creatinine 0.67 (0.52-1.04) mg/dL Est GFR (CKD-EPI)AfAm >90 (>60 ml/min/1.73 sqM) Est GFR (CKD-EPI)NonAf >90 (>60 ml/min/1.73 sqM) Glucose 99 (74-99) mg/dL Plasma Lactic Acid Akshat (0.7-2.0) mmol/L Calcium 9.9 (8.4-10.2) mg/dL Total Bilirubin 0.6 (0.2-1.3) mg/dL AST 20 (14-36) U/L ALT 14 (4-34) U/L Alkaline Phosphatase 117 (38-126) U/L Total Protein 7.4 (6.3-8.2) g/dL Albumin 4.2 (3.5-5.0) g/dL Amylase 52 (30-110) U/L Lipase 36 (23-300) U/L Urine Color Urine Appearance (Clear) Urine pH (5.0-8.0) Ur Specific Girard (1.001-1.035) Urine Protein (Negative) Urine Glucose (UA) (Negative) Urine Ketones (Negative) Urine Blood (Negative) Urine Nitrite (Negative) Urine Bilirubin (Negative) Urine Urobilinogen (<2.0) mg/dL Ur Leukocyte Esterase (Negative) Urine RBC (0-5) /hpf Urine WBC (0-5) /hpf Ur Squamous Epith Cells (0-4) /hpf Blood Type Blood Type Recheck Bld Type Recheck Status Antibody Screen Spec Expiration Date 03/30/20 03/30/20 03/30/20 Range/Units 01:57 03:05 03:14 WBC (3.8-10.6) k/uL RBC (3.80-5.40) m/uL Hgb (11.4-16.0) gm/dL Hct (34.0-46.0) % MCV (80.0-100.0) fL MCH (25.0-35.0) pg MCHC (31.0-37.0) g/dL RDW (11.5-15.5) % Plt Count (150-450) k/uL MPV Neutrophils % % Lymphocytes % % Monocytes % % Eosinophils % % Basophils % % Neutrophils # (1.3-7.7) k/uL Lymphocytes # (1.0-4.8) k/uL Monocytes # (0-1.0) k/uL Eosinophils # (0-0.7) k/uL Basophils # (0-0.2) k/uL PT (9.0-12.0) sec INR (<1.2) APTT (22.0-30.0) sec Sodium (137-145) mmol/L Potassium (3.5-5.1) mmol/L Chloride (98-107) mmol/L Carbon Dioxide (22-30) mmol/L Anion Gap mmol/L BUN (7-17) mg/dL Creatinine (0.52-1.04) mg/dL Est GFR (CKD-EPI)AfAm (>60 ml/min/1.73 sqM) Est GFR (CKD-EPI)NonAf (>60 ml/min/1.73 sqM) Glucose (74-99) mg/dL Plasma Lactic Acid Akshat 1.1 (0.7-2.0) mmol/L Calcium (8.4-10.2) mg/dL Total Bilirubin (0.2-1.3) mg/dL AST (14-36) U/L ALT (4-34) U/L Alkaline Phosphatase (38-126) U/L Total Protein (6.3-8.2) g/dL Albumin (3.5-5.0) g/dL Amylase (30-110) U/L Lipase (23-300) U/L Urine Color Light Yellow Urine Appearance Clear (Clear) Urine pH 8.0 (5.0-8.0) Ur Specific Girard 1.038 H (1.001-1.035) Urine Protein Negative (Negative) Urine Glucose (UA) Negative (Negative) Urine Ketones Negative (Negative) Urine Blood Moderate H (Negative) Urine Nitrite Negative (Negative) Urine Bilirubin Negative (Negative) Urine Urobilinogen <2.0 (<2.0) mg/dL Ur Leukocyte Esterase Moderate H (Negative) Urine RBC 1 (0-5) /hpf Urine WBC 3 (0-5) /hpf Ur Squamous Epith Cells 5 H (0-4) /hpf Blood Type O Positive Blood Type Recheck O Pos Bld Type Recheck Status No Antibody Screen NEGATIVE Spec Expiration Date 04/02/2020 - 2302 - Radiology Data CT shows large left ovarian dermoid measuring up to 11.1 cm and right ovarian dermoid measuring up to 6.2 cm. (Karen Gonzalez) Disposition <Karen Gonzalez - Last Filed: 03/30/20 02:59> Is patient prescribed a controlled substance at d/c from ED?: No <Michele Lara - Last Filed: 03/30/20 05:00> Clinical Impression: Abdominal pain Disposition: HOME SELF-CARE Condition: Good Instructions (If sedation given, give patient instructions): Abdominal Pain (ED) Referrals: Alona Joyce MD [Primary Care Provider] - 1-2 days
[2020-03-30 02:08] LABS: Basophils # (A) 0.1 k/uL (0-0.2); Basophils % (A) 1 %; Eosinophils # (A) 0.2 k/uL (0-0.7); Eosinophils % (A) 3 %; HCT 42.2 % (34.0-46.0); HGB 13.4 gm/dL (11.4-16.0); Lymphocytes # (A) 2.1 k/uL (1.0-4.8); Lymphocytes % (A) 33 %; MCH 24.6 pg (25.0-35.0); MCHC 31.8 g/dL (31.0-37.0); MCV 77.2 fL (80.0-100.0); Mean Platelet Volume 6.6; Monocytes # (A) 0.3 k/uL (0-1.0); Monocytes % (A) 5 %; Neutrophils # (A) 3.5 k/uL (1.3-7.7); Neutrophils % (A) 56 %; Platelet Count 378 k/uL (150-450); RBC 5.47 m/uL (3.80-5.40); RDW 14.5 % (11.5-15.5); WBC 6.3 k/uL (3.8-10.6)
[2020-03-30 02:15] LABS: Partial Thromboplastin Time 28.6 sec (22.0-30.0); Prothrombin Time 10.6 sec (9.0-12.0)
[2020-03-30 02:17] LABS: ALT 14 U/L (4-34); AST 20 U/L (14-36); African American GFR (CKD) >90 (>60 ml/min/1.73 sqM); Albumin 4.2 g/dL (3.5-5.0); Alkaline Phosphatase 117 U/L (38-126); Amylase 52 U/L (30-110); Anion Gap 9 mmol/L; Blood Urea Nitrogen 16 mg/dL (7-17); Calcium 9.9 mg/dL (8.4-10.2); Carbon Dioxide 25 mmol/L (22-30); Chloride 105 mmol/L (98-107); Glucose 99 mg/dL (74-99); Lipase 36 U/L (23-300); Non-African American GFR(CKD) >90 (>60 ml/min/1.73 sqM); Potassium 3.3 mmol/L (3.5-5.1); Sodium 139 mmol/L (137-145); Total Bilirubin 0.6 mg/dL (0.2-1.3); Total Protein 7.4 g/dL (6.3-8.2)
--- NOTE | 2020-03-30 02:45 | CT ---
EXAM: CT Abdomen and Pelvis With Intravenous Contrast CLINICAL HISTORY: ITS.REASON CT Reason: LLQ pain, cyst hx TECHNIQUE: Axial computed tomography images of the abdomen and pelvis with intravenous contrast. CTDI is 22.27 mGy and DLP is 864.1 mGy-cm. This CT exam was performed using one or more of the following dose reduction techniques: automated exposure control, adjustment of the mA and/or kV according to patient size, and/or use of iterative reconstruction technique. COMPARISON: No relevant prior studies available. FINDINGS: Lung bases: Unremarkable. ABDOMEN: Liver: Unremarkable. Gallbladder and bile ducts: Unremarkable. Pancreas: Unremarkable. Spleen: Unremarkable. Adrenals: Unremarkable. Kidneys and ureters: Unremarkable. Stomach and bowel: Bowel is unremarkable. PELVIS: Appendix: Appendix is not visualized. Bladder: Unremarkable. Reproductive: Large left ovarian dermoid measuring up to 11.1 cm and right ovarian dermoid measuring up to 6.2 cm. ABDOMEN and PELVIS: Intraperitoneal space: Trace free fluid in the pelvis. Bones/joints: No acute fracture. No dislocation. Soft tissues: Unremarkable. Vasculature: Unremarkable. Lymph nodes: Unremarkable. IMPRESSION: Large left ovarian dermoid measuring up to 11.1 cm and right ovarian dermoid measuring up to 6.2 cm.
[2020-03-30 03:26] LABS: Appearance,Urine Clear (Clear); Bilirubin,Urine Negative (Negative); Blood,Urine Moderate (Negative); Color,Urine Light Yellow; Glucose,Urine (UA) Negative (Negative); Ketones,Urine Negative (Negative); Leukocyte Esterase,Urine Moderate (Negative); Nitrite,Urine Negative (Negative); Protein,Urine Negative (Negative); RBC,Urine 1 /hpf (0-5); Specific Gravity,Urine 1.038 (1.001-1.035); Squamous Epithelial Cell,Urine 5 /hpf (0-4); Urobilinogen,Urine <2.0 mg/dL (<2.0); WBC,Urine 3 /hpf (0-5)
--- NOTE | 2020-03-30 04:06 | US ---
EXAM: US Pelvis Transabdominal, Complete CLINICAL HISTORY: ITS.REASON US Reason: 2 weeks post , hx Large L ovarian cyst TECHNIQUE: Real-time complete transabdominal pelvic ultrasound with image documentation. COMPARISON: No relevant prior studies available. FINDINGS: Uterus/cervix: Uterus measures 10.0 x 7.9 x 7.4 cm. Small amount of fluid within the endocervical canal likely representing blood products. Normal endometrial stripe thickness. No myometrial mass. Right ovary: Right ovary measures 4.5 x 3.8 x 3.7 cm. No torsion. Complex lesion in the right ovary with the anechoic portion measuring up to 3.9 cm likely representing known dermoid. Left ovary: Left ovary measures 3.8 x 3.1 x 2.7 cm. No torsion. Hyperechoic lesion seen in the region the right ovary measured to 14 mm which may represent partially visualized dermoid. Free fluid: No free fluid. IMPRESSION: Bilateral ovarian dermoids. No torsion.
[2020-03-30] MEDS ORDERED: HYDROmorphone 1 MG/ML 1 ML SYRINGE IVP STA (04:27)
[2020-03-30] MEDS ORDERED: diphenhydrAMINE 50 MG/ML 1 ML VIAL IVP STA (04:48)
[2020-03-30 04:57] VITALS: BP 114/84; PULSE 63; RESP 16
== END 2020-03-30 05:06 | disposition home or self-care (01) ==
LOC: EC 01:27
DX: N83.201 Unspecified ovarian cyst, right side (principal); N83.202 Unspecified ovarian cyst, left side; Z85.71 Personal history of Hodgkin lymphoma; Z98.890 Other specified postprocedural states
CPT/HCPCS: 36415; 86900; 86901; 80053; 82150; 83605; 83690; 85025; 85610; 85730; 86850; 81001; 93976; 76856; 76830; 74177; 99285; 96374; 96375 ×3; 96376 ×2; 96361; J2270; J1200; J2405; J1170; Q9967